=== PATIENT | female | born 2000 | race American Indian/Alaskan Native ===

== ENCOUNTER 2019-06-11 12:43 | Emergency (ER) | payer MEDICAID ==
--- NOTE | 2019-06-11 13:02 | Emergency Department Report ---
Blank Doc - Documentation Documentation: 18-year-old female that presents with vaginal bleeding and stated is 6 weeks p regnant. This initial assessment/diagnostic orders/clinical plan/treatment(s) is/are subject to change based on patient's health status, clinical progression and re- assessment by fellow clinical providers in the ED. Further treatment and workup at subsequent clinical providers discretion. Patient/guardians urged not to elope from the ED as their condition may be serious if not clinically assessed and managed. Initial orders include: 1- Patient sent to [facility] for further evaluation and treatment 2- ua 3- labs 3- us ob
[2019-06-11 13:04] VITALS: BP 135/85
[2019-06-11 14:37] LABS: Bilirubin,Urine NEG (Negative); Blood,Urine LG (Negative); Color,Urine Straw (Yellow); Protein,Urine <15 mg/dL mg/dL (Negative); Urobilinogen,Urine < 2.0 mg/dL (<2.0)
[2019-06-11 14:38] LABS: Mucus,Urine FEW /HPF; WBC,Urine < 1.0 /HPF (0.0-6.0)
[2019-06-11 14:46] LABS: Basophils # (Auto) 0.1 K/mm3 (0.0-0.1); Basophils % (Auto) 1.2 % (0.0-1.8); Eosinophils # (Auto) 0.6 K/mm3 (0.0-0.4); Eosinophils % (Auto) 10.9 % (0.0-4.3); Hematocrit 38.1 % (30.3-42.9); Hemoglobin 12.4 gm/dl (10.1-14.3); Lymphocytes # (Auto) 1.8 K/mm3 (1.2-5.4); Lymphocytes % (Auto) 30.8 % (13.4-35.0); Mean Corpuscular HGB Conc 33 % (30-34); Mean Corpuscular Volume 86 fl (79-97); Monocytes # (Auto) 0.4 K/mm3 (0.0-0.8); Monocytes % (Auto) 6.2 % (0.0-7.3); Platelet Count 307 K/mm3 (140-440); Red Blood Count 4.45 M/mm3 (3.65-5.03); Red Cell Distribution Width 13.5 % (13.2-15.2)
--- NOTE | 2019-06-11 22:01 | Ultrasound Report ---
OB ultrasound FINDINGS: There is no intrauterine identified. Endometrial stripe only measures 9 mm. Right ovary measures 3.3 x 1.6 x 2.9 cm and contains small follicular cysts but is otherwise normal. The l eft ovary measures 3.7 x 1.6 x 2.4 cm and contains a somewhat thick walled 1.5 x 1.9 x 1.8 cm cyst. T his is not particularly hypervascular however. No free fluid is seen. IMPRESSION: No IUP or definite ectopic is seen. Correlation with beta hCG levels may be of benefit. Signer Name: Adalid Bedolla MD Signed: 06/11/2019 9:56 PM Workstation Name: [id number]
== END 2019-06-11 18:36 | disposition left against medical advice (07) ==
LOC: ED 12:43
DX: O46.91 Antepartum hemorrhage, unspecified, first trimester (principal); Z3A.01 Less than 8 weeks gestation of pregnancy; Z53.21 Procedure and treatment not carried out due to patient leaving prior to being seen by health care provider
CPT/HCPCS: 36415; 76801; 76817; 81001; 84702; 85025; 86900; 86901